=== PATIENT | male | born 1985 | race African-American/Black ===

== ENCOUNTER 2017-04-05 11:22 | Emergency (ER) | payer MEDICAID ==
[~2017-04-05] VITALS: Ht 182.9 cm; Wt 69.0 kg
[2017-04-05] MEDS ORDERED: KETOROLAC 60MG/2ML VIAL IM ONE (16:30)
[2017-04-05 17:24] LABS: CLARITY URINE CLEAR (CLEAR); COLOR URINE YELLOW (YELLOW)
[2017-04-05 17:25] VITALS: BP 120/81
[2017-04-05 17:25] LABS: GLUCOSE URINE NEGATIVE (NEGATIVE); KETONES URINE 1+ (NEGATIVE); LEUKOCYTE ESTERASE URINE NEGATIVE (NEGATIVE); NITRITE URINE NEGATIVE (NEGATIVE); OCCULT BLOOD URINE NEGATIVE (NEGATIVE); PH URINE 5.5 (4.5-8.0); PROTEIN URINE NEGATIVE (NEGATIVE); SPECIFIC GRAVITY URINE 1.013 (1.005-1.030)
== END 2017-04-05 18:44 | disposition home or self-care (01) ==
LOC: ER 11:42
DX: S46.912A Strain of unspecified muscle, fascia and tendon at shoulder and upper arm level, left arm, initial encounter (principal); S39.012A Strain of muscle, fascia and tendon of lower back, initial encounter; S16.1XXA Strain of muscle, fascia and tendon at neck level, initial encounter; R10.9 Unspecified abdominal pain; F12.10 Cannabis abuse, uncomplicated; V43.52XA Car driver injured in collision with other type car in traffic accident, initial encounter; Y93.89 Activity, other specified; Y92.89 Other specified places as the place of occurrence of the external cause; Y99.8 Other external cause status
CPT/HCPCS: 81003; 99283; Z7610